=== PATIENT | male | born 1955 | race Hispanic/Latino ===

== ENCOUNTER → 2021-05-16 | Day surgery (SDC) | payer OTHER ==
[2021-05-15 11:36] LABS: BASOPHILS % 0.1 % (0.0-1.0); EOSINOPHILS % 0.1 % (0.0-6.0); HEMATOCRIT 35.7 % (38.2-49.6); HEMOGLOBIN 11.3 g/dL (14.0-18.0); LYMPHOCYTES # (AUTO) 1.3 (1.0-3.2); LYMPHOCYTES % 13.6 % (18.0-39.1); MEAN CORPUSCULAR HEMOGLOBIN 26.7 pg (28-32); MEAN CORPUSCULAR HGB CONC 31.7 g/dL (31-35); MEAN CORPUSCULAR VOLUME 84.4 fL (81-99); MONOCYTES % 9.8 % (4.4-11.3); NEUTROPHILS # (AUTO) 7.4 (2.1-6.9); NEUTROPHILS % 75.6 % (38.7-80.0); PLATELET COUNT 291 x10e3/uL (140-360); RED BLOOD COUNT 4.23 x10e6/uL (4.3-5.7); RED CELL DISTRIBUTION WIDTH 14.3 % (11.7-14.4)
[~2021-05-16] MED LIST: Aspirin PO; CALCIUM ACETAT667 M1 PO; CO Q1060 MG PO; DIOVAN80 MG PO; FISH OIL 1,0001 EAC2 PO; FLOMAX0.4 MG PO; GLUCAGON FOR INJ 1 MG VIAL ONE; HYDROCHLOROTHIA25 MG PO; MAGNESIUM OXID400 MG PO; NIFEDIPINE ER30 M1 PO; PLAQUENIL200 MG PO; PRAVASTATIN SOD40 MG PO; PROPOFOL IV EMULSION 10 MG/ML 20 ML VIAL ONE; VITAMIN B-121000 MCG PO; VITAMIN C500 MG PO
[2021-05-16 11:25] VITALS: BP 120/84
== END | disposition home or self-care (01) ==
LOC: OR 08:13
PROVIDERS: ATTEND Internal Medicine Gastroenterology
DX: K29.60 Other gastritis without bleeding (principal); D12.2 Benign neoplasm of ascending colon; K29.80 Duodenitis without bleeding; K29.50 Unspecified chronic gastritis without bleeding; K63.89 Other specified diseases of intestine; K64.8 Other hemorrhoids; K59.00 Constipation, unspecified; I10 Essential (primary) hypertension; Z88.0 Allergy status to penicillin; Z88.4 Allergy status to anesthetic agent; Z01.812 Encounter for preprocedural laboratory examination; Z20.822 Contact with and (suspected) exposure to COVID-19; Z79.82 Long term (current) use of aspirin; Z68.32 Body mass index [BMI] 32.0-32.9, adult; Z87.01 Personal history of pneumonia (recurrent); Z86.16 Personal history of COVID-19
CPT/HCPCS: 36415; 43239; 45385; 85025; J1610; J2704; U0002; 45378; 45380

== ENCOUNTER → 2022-04-26 | Day surgery (SDC) | payer OTHER ==
[2022-04-25 12:32] LABS: BASOPHILS % 0.1 % (0.0-1.0); EOSINOPHILS % 0.2 % (0.0-6.0); HEMATOCRIT 31.1 % (38.2-49.6); HEMOGLOBIN 9.7 g/dL (14.0-18.0); LYMPHOCYTES # (AUTO) 1.5 (1.0-3.2); LYMPHOCYTES % 13.8 % (18.0-39.1); MEAN CORPUSCULAR HEMOGLOBIN 25.5 pg (28-32); MEAN CORPUSCULAR HGB CONC 31.2 g/dL (31-35); MEAN CORPUSCULAR VOLUME 81.8 fL (81-99); MONOCYTES # (AUTO) 0.8 (0.2-0.8); MONOCYTES % 7.3 % (4.4-11.3); NEUTROPHILS # (AUTO) 8.6 (2.1-6.9); NEUTROPHILS % 77.3 % (38.7-80.0); PLATELET COUNT 294 x10e3/uL (140-360); RED CELL DISTRIBUTION WIDTH 15.9 % (11.7-14.4)
[2022-04-25 12:49] LABS: ANION GAP 12.9 mmol/L (8-16); CALCIUM 8.9 mg/dL (8.4-10.2); CREATININE, SERUM 0.74 mg/dL (0.72-1.25); POTASSIUM 3.9 mmol/L (3.5-5.1)
[~2022-04-26] MED LIST changes: +BALANCED SALT SOLN (OPTH) 15 ML BTL IO ONE; +BUPIVACAINE HC 0.75% PF 10ML VIAL INJ ONE; +CYCLOPENTOLATE HCL 2% OPTH SOLN 2 ML BTL OP ONE; +EPINEPHRINE HCL 1:1000 1ML 1 MG/ML AMP ONE; +GATIFLOXACIN(OPTH) 5 ML LIQD ONE; -GLUCAGON FOR INJ 1 MG VIAL ONE; +LIDOCAINE 2% /EPINEPHRINE 20 ML SDV INJ ONE; +LIDOCAINE HCL-PF 4% 40 MG/1 ML 5ML AMP ONE; +PHENYLEPHRINE HCL 2 ML DROPS ONE; +POVIDONE IODINE 0.05% 0.05 % ML PO ONE; +POVIDONE IODINE 5% (OPTH) 30 ML BTL ONE; +TOBRAMYCIN/DEXAMETHASONE(OPTH) 3.5 GM TUBE ONE
[2022-04-26 10:28] VITALS: BP 124/81
== END | disposition home or self-care (01) ==
LOC: OR 06:50
PROVIDERS: ATTEND Ophthalmology
DX: H25.11 Age-related nuclear cataract, right eye (principal); E11.9 Type 2 diabetes mellitus without complications; I10 Essential (primary) hypertension; E78.5 Hyperlipidemia, unspecified; Z88.0 Allergy status to penicillin; Z01.810 Encounter for preprocedural cardiovascular examination; Z01.812 Encounter for preprocedural laboratory examination; Z20.822 Contact with and (suspected) exposure to COVID-19; Z79.84 Long term (current) use of oral hypoglycemic drugs; Z79.899 Other long term (current) drug therapy
CPT/HCPCS: 0223U; 36415 ×2; 66984; 80048; 82948; 85025; 93005; J0171; J2001; V2632

== ENCOUNTER → 2022-08-02 | Day surgery (SDC) | payer OTHER ==
[2022-07-31 09:53] LABS: BASOPHILS % 0.2 % (0.0-1.0); EOSINOPHILS % 0.1 % (0.0-6.0); HEMATOCRIT 36.9 % (38.2-49.6); HEMOGLOBIN 11.4 g/dL (14.0-18.0); LYMPHOCYTES # (AUTO) 1.1 (1.0-3.2); MEAN CORPUSCULAR HEMOGLOBIN 26.6 pg (28-32); MEAN CORPUSCULAR HGB CONC 30.9 g/dL (31-35); MONOCYTES # (AUTO) 0.6 (0.2-0.8); MONOCYTES % 5.8 % (4.4-11.3); NEUTROPHILS # (AUTO) 7.6 (2.1-6.9); NEUTROPHILS % 80.4 % (38.7-80.0); PLATELET COUNT 226 x10e3/uL (140-360); RED BLOOD COUNT 4.29 x10e6/uL (4.3-5.7); RED CELL DISTRIBUTION WIDTH 18.5 % (11.7-14.4)
[~2022-08-02] MED LIST changes: -BUPIVACAINE HC 0.75% PF 10ML VIAL INJ ONE; +BUPIVACAINE HCL 0.5% INJ 30 ML VIAL INJ ONE; -LIDOCAINE 2% /EPINEPHRINE 20 ML SDV INJ ONE; +LIDOCAINE 2%/ EPINEPHRINE 20ML MDV ONE; +LIDOCAINE HCL 2% LOCAL INJ 5 ML SDV VIAL INJ ONE; -LIDOCAINE HCL-PF 4% 40 MG/1 ML 5ML AMP ONE; +MIDAZOLAM HCL 2 MG/2 ML VIAL ONE; +ONDANSETRON HCL INJ 2MG/ML 2ML 2 MG/ML VIAL ONE; +PILOCARPINE HCL(OPTH) 15 ML LIQD ONE
[2022-08-02 09:30] VITALS: BP 123/80
== END | disposition home or self-care (01) ==
LOC: OR 07:28
PROVIDERS: ATTEND Ophthalmology
DX: H25.12 Age-related nuclear cataract, left eye (principal); E11.9 Type 2 diabetes mellitus without complications; I10 Essential (primary) hypertension; E78.5 Hyperlipidemia, unspecified; Z01.810 Encounter for preprocedural cardiovascular examination; Z01.812 Encounter for preprocedural laboratory examination; Z79.899 Other long term (current) drug therapy
CPT/HCPCS: 36415 ×2; 66984; 82948; 85025; 93005; J0171; J2001; J2250; J2405; J2704